=== PATIENT | male | born 1990 | race African-American/Black ===

== ENCOUNTER 2018-02-09 19:50 | Inpatient (IN) | payer MEDICAID, OTHER ==
[~2018-02-09] VITALS: Ht 180.3 cm; Wt 78.0 kg
[~2018-02-09 19:50] MED LIST: BUPROPION XL300 MG ORAL
[2018-02-09 19:52] VITALS: BP 106/57
[2018-02-09] MEDS ORDERED: Acetaminophen 500mg (ES) tab ORAL ONE (20:00)
--- NOTE | 2018-02-09 20:28 | Emergency Room Report ---
History of Present Illness General Chief Complaint: Diarrhea Source: Patient, EMS (Butch Lara) Present Illness HPI Patient's 28-year-old male who is brought in by EMS after increased fever and diarrhea. Patient reports having a fever for the past 2 days. Patient prior history of HIV. He denies any vomiting. He reports having abdominal pain in the epigastric area. This had somewhat improved. History is markedly limited by patient's poor historian. (Butch Lara) Allergies: Coded Allergies: No Known Allergies (Unverified , 02/09/18) Patient History Past Medical History: see triage record Reviewed Nursing Documentation: PMH: Agreed; PSxH: Agreed (Butch Lara) Nursing Documentation-PMH History Of Psychiatric Problem: Yes (Butch Lara) Review of Systems All Other Systems: limited - poor historian (Butch Lara) Physical Exam Vital Signs Date Time Temp Pulse Resp B/P (MAP) Pulse Ox O2 Delivery O2 Flow Rate FiO2 02/09/18 19:45 102.5 125 18 106/57 102.6 Sp02 EP Interpretation: reviewed, normal General Appearance: normal inspection, well appearing, no apparent distress, alert, GCS 15 Head: atraumatic ENT: normal ENT inspection, hearing grossly normal, normal voice Neck: normal inspection, full range of motion, supple, no bony tend Respiratory: normal inspection, lungs clear, normal breath sounds, no respiratory distress, no retraction, no wheezing Cardiovascular #1: no edema, tachycardia Gastrointestinal: soft, no guarding, no hernia, tenderness Genitourinary: no CVA tenderness Musculoskeletal: normal inspection, back normal, normal range of motion Neurologic: normal inspection, alert, oriented x3, responsive, advanced practice psychiatric nurse III-XII nml as tested, speech normal Psychiatric: normal inspection, judgement/insight normal, mood/affect normal Skin: normal inspection, normal color, no rash (Butch Lara) Procedures Critical Care Time Critical Care Time Patient had a critical medical condition which untreated could potentially result in life or limb threatening injury. Total critical care time excluding procedures approximately 45 minutes. (Butch Lara) Central Line Central Line : Consent: Emergent Central Line Lumen: triple Maximal Sterile Barrier Tech: yes cap, yes mask, yes sterile gown, yes sterile gloves, yes large sterile sheet, yes hand hygiene, yes chlorhexidine prep Central Line Postion: internal jugular (R) Anesthesia: Lidocaine cc's of anesthesia: 5 Central Line Post Position: sutured, good blood return, position confirmed w / CXR Attempts: One Patient Tolerated: Well Complications: None (Bhavik Lanza M.D.) Medical Decision Making Diagnostic Impression: Primary Impression: Enteritis Additional Impressions: Acute febrile illness HIV (human immunodeficiency virus infection) ER Course Patient presented for abdominal pain. Differential diagnoses included ischemic bowel, appendicitis, perforated viscus, abdominal aortic aneurysm, inferior myocardial infarction, viral gastroenteritis Because of complexity of patient's case laboratory testing and imaging studies were ordered. The patient started on IV fluids as well as IV antibiotics. Patient noted have prior history of HIV. The laboratory testing showed evidence of leukocytosis as well as rhabdomyolysis.The patient will likely require hospitalization due to rhabdomyolysis as well as the dehydration.Patient was noted to be initially normotensive. The patient blood pressure subsequent was noted to be lower.The lactic acid level was noted be elevated consistent with severe sepsis.CT the abdomen pelvis read by radiology showed fluid levels of colon there is mild wall thickening in keeping with colitis. Patient was endorsed to Dr. Lanza. Patient was discussed with Dr. Gabe Vyas due to capitated physician. Labs Test 02/09/18 20:10 White Blood Count 11.8 K/UL (4.8-10.8) Red Blood Count 6.13 M/UL (4.70-6.10) Hemoglobin 13.7 G/DL (14.2-18.0) Hematocrit 43.5 % (42.0-52.0) Mean Corpuscular Volume 71 FL (80-99) Mean Corpuscular Hemoglobin 22.3 PG (27.0-31.0) Mean Corpuscular Hemoglobin Concent 31.5 G/DL (32.0-36.0) Red Cell Distribution Width 14.0 % (11.6-14.8) Platelet Count 161 K/UL (150-450) Mean Platelet Volume 8.6 FL (6.5-10.1) Neutrophils (%) (Auto) 83.6 % (45.0-75.0) Lymphocytes (%) (Auto) 8.3 % (20.0-45.0) Monocytes (%) (Auto) 7.3 % (1.0-10.0) Eosinophils (%) (Auto) 0.0 % (0.0-3.0) Basophils (%) (Auto) 0.7 % (0.0-2.0) Sodium Level 140 MMOL/L (136-145) Potassium Level 3.1 MMOL/L (3.5-5.1) Chloride Level 103 MMOL/L (98-107) Carbon Dioxide Level 24 MMOL/L (21-32) Anion Gap 13 mmol/L (5-15) Blood Urea Nitrogen 26 mg/dL (7-18) Creatinine 1.6 MG/DL (0.55-1.30) Estimat Glomerular Filtration Rate > 60 mL/min (>60) Glucose Level 114 MG/DL (74-106) Calcium Level 8.2 MG/DL (8.5-10.1) Phosphorus Level 4.1 MG/DL (2.5-4.9) Magnesium Level 1.3 MG/DL (1.8-2.4) Total Bilirubin 0.6 MG/DL (0.2-1.0) Aspartate Amino Transf (AST/SGOT) 117 U/L (15-37) Alanine Aminotransferase (ALT/SGPT) 46 U/L (12-78) Alkaline Phosphatase 54 U/L (46-116) Total Creatine Kinase 5041 U/L (26-308) Creatine Kinase MB 1.2 NG/ML (0.0-3.6) Creatine Kinase MB Relative Index 0.0 Troponin I 0.000 ng/mL (0.000-0.056) Total Protein 8.0 G/DL (6.4-8.2) Albumin 3.5 G/DL (3.4-5.0) Globulin 4.5 g/dL Albumin/Globulin Ratio 0.8 (1.0-2.7) (Butch Lara) ER Course I received signout, 28-year-old male, enteritis, septic, still hypotensive despite fluid bolus, I placed central line without issue, we'll start Levothroid drip going to ICU Laboratory Tests Test 02/09/18 20:10 02/09/18 22:24 White Blood Count 11.8 K/UL (4.8-10.8) H Red Blood Count 6.13 M/UL (4.70-6.10) H Hemoglobin 13.7 G/DL (14.2-18.0) L Hematocrit 43.5 % (42.0-52.0) Mean Corpuscular Volume 71 FL (80-99) L Mean Corpuscular Hemoglobin 22.3 PG (27.0-31.0) L Mean Corpuscular Hemoglobin Concent 31.5 G/DL (32.0-36.0) L Red Cell Distribution Width 14.0 % (11.6-14.8) Platelet Count 161 K/UL (150-450) Mean Platelet Volume 8.6 FL (6.5-10.1) Neutrophils (%) (Auto) 83.6 % (45.0-75.0) H Lymphocytes (%) (Auto) 8.3 % (20.0-45.0) L Monocytes (%) (Auto) 7.3 % (1.0-10.0) Eosinophils (%) (Auto) 0.0 % (0.0-3.0) Basophils (%) (Auto) 0.7 % (0.0-2.0) Sodium Level 140 MMOL/L (136-145) Potassium Level 3.1 MMOL/L (3.5-5.1) L Chloride Level 103 MMOL/L (98-107) Carbon Dioxide Level 24 MMOL/L (21-32) Anion Gap 13 mmol/L (5-15) Blood Urea Nitrogen 26 mg/dL (7-18) H Creatinine 1.6 MG/DL (0.55-1.30) H Estimate Glomerular Filtration Rate > 60 mL/min (>60) Glucose Level 114 MG/DL (74-106) H Lactic Acid Level 2.90 mmol/L (0.66-2.22) H Calcium Level 8.2 MG/DL (8.5-10.1) L Phosphorus Level 4.1 MG/DL (2.5-4.9) Magnesium Level 1.3 MG/DL (1.8-2.4) L Total Bilirubin 0.6 MG/DL (0.2-1.0) Aspartate Amino Transferase (AST) 117 U/L (15-37) H Alanine Aminotransferase (ALT) 46 U/L (12-78) Alkaline Phosphatase 54 U/L (46-116) Total Creatine Kinase 5041 U/L (26-308) H Creatine Kinase MB 1.2 NG/ML (0.0-3.6) Creatine Kinase MB Relative Index 0.0 Troponin I 0.000 ng/mL (0.000-0.056) Total Protein 8.0 G/DL (6.4-8.2) Albumin 3.5 G/DL (3.4-5.0) Globulin 4.5 g/dL Albumin/Globulin Ratio 0.8 (1.0-2.7) L Urine Color Era Urine Appearance Clear Urine pH 5.0 (4.5-8.0) Urine Specific [place] 1.020 (1.005-1.035) Urine Protein 2+ (NEGATIVE) H Urine Glucose (UA) Negative (NEGATIVE) Urine Ketones Negative (NEGATIVE) Urine Occult Blood 1+ (NEGATIVE) H Urine Nitrite Negative (NEGATIVE) Urine Bilirubin Negative (NEGATIVE) Urine Ictotest Negative Urine Urobilinogen 1 MG/DL (0.0-1.0) H Urine Leukocyte Esterase 1+ (NEGATIVE) H Urine RBC 0-2 /HPF (0 - 0) H Urine WBC 5-10 /HPF (0 - 0) H Urine Squamous Epithelial Cells Occasional /LPF Urine Amorphous Sediment Moderate /LPF (NONE) H Urine Bacteria Few /HPF (NONE) Microbiology Date/Time Source Procedure Growth Status 02/09/18 20:15 Nasal Nares Influenza Types A,B Antigen (LILLI) - Final Complete (Bhavik Lanza M.D.) EKG Diagnostic Results Rate: tachycardiac - 127 Rhythm: NSR ST Segments: no acute changes ASA given to the pt in ED: No (Butch Lara) Rhythm Strip Diag. Results EP Interpretation: yes Rhythm: NSR, no PVC's, no ectopy (Butch Lara) Last Vital Signs Date Time Temp Pulse Resp B/P (MAP) Pulse Ox O2 Delivery O2 Flow Rate FiO2 02/09/18 19:45 102.5 125 18 106/57 102.6 Status: unchanged (Butch Lara) Disposition: XFER SHT-TRM HOSP Condition: Serious Butch Lara Feb 09, 2018 20:28 Bhavik Lanza M.D. Feb 09, 2018 23:44
[2018-02-09 20:45] LABS: BASOPHILS % (AUTO) 0.7 % (0.0-2.0); HEMATOCRIT 43.5 % (42.0-52.0); HEMOGLOBIN 13.7 G/DL (14.2-18.0); LYMPHOCYTES % (AUTO) 8.3 % (20.0-45.0); MEAN CORPUSCULAR VOLUME 71 FL (80-99); MONOCYTES % (AUTO) 7.3 % (1.0-10.0); NEUTROPHILS % (AUTO) 83.6 % (45.0-75.0); PLATELET COUNT 161 K/UL (150-450); RED BLOOD COUNT 6.13 M/UL (4.70-6.10); WHITE BLOOD COUNT 11.8 K/UL (4.8-10.8)
[2018-02-09 20:47] LABS: ANION GAP 13 mmol/L (5-15); BLOOD UREA NITROGEN 26 mg/dL (7-18); CALCIUM 8.2 MG/DL (8.5-10.1); CARBON DIOXIDE 24 MMOL/L (21-32); CHLORIDE 103 MMOL/L (98-107); CREATININE 1.6 MG/DL (0.55-1.30); POTASSIUM 3.1 MMOL/L (3.5-5.1); SODIUM 140 MMOL/L (136-145)
[2018-02-09 21:01] LABS: ALANINE AMINOTRANSFERASE 46 U/L (12-78); ALBUMIN 3.5 G/DL (3.4-5.0); ALBUMIN/GLOBULIN RATIO 0.8 (1.0-2.7); ALKALINE PHOSPHATASE 54 U/L (46-116); ASPARTATE AMINO TRANSFERASE 117 U/L (15-37); BILIRUBIN,TOTAL 0.6 MG/DL (0.2-1.0); CKMB 1.2 NG/ML (0.0-3.6); CREATINE KINASE 5041 U/L (26-308); PHOSPHORUS 4.1 MG/DL (2.5-4.9)
[2018-02-09 21:18] VITALS: BP 87/46
[2018-02-09] MEDS ORDERED: Ascorbic Acid 500mg tab ORAL ONE (21:30)
[2018-02-09] MEDS ORDERED: Hydrocortisone 100mg Inj IV ONE (21:30)
[2018-02-09 22:43] LABS: APPEARANCE,URINE CLEAR; COLOR,URINE AMBER
[2018-02-09 22:44] LABS: BILIRUBIN, URINE NEGATIVE (NEGATIVE); GLUCOSE, URINE (UA) NEGATIVE (NEGATIVE); KETONES,URINE NEGATIVE (NEGATIVE); LEUKOCYTE ESTERASE ,URINE 1+ (NEGATIVE); NITRITE,URINE NEGATIVE (NEGATIVE); PROTEIN,URINE 2+ (NEGATIVE); UROBILINOGEN,URINE 1 MG/DL (0.0-1.0)
[2018-02-09 22:46] VITALS: BP 83/49
[2018-02-09] MEDS ORDERED: Lidocaine 1% MPF 10mg/ml 5ml ONE (23:04)
[2018-02-09 23:39] VITALS: BP 90/45
[2018-02-10] VITALS (17 sets, daily range): BP systolic 96–111; BP diastolic 45–74
[2018-02-10] MEDS ORDERED: Lidocaine 1% MPF 10mg/ml 5ml INJ ONE
[2018-02-10] MEDS ORDERED: D5NS 1,000 ML IV SCH (01:45)
[2018-02-10] MEDS ORDERED: Vancomycin 1gm/D5W 275ml IVPB SCH ×4 (02:30→11:00)
[2018-02-10 04:44] LABS: BASOPHILS % (AUTO) 1.2 % (0.0-2.0); HEMATOCRIT 39.9 % (42.0-52.0); HEMOGLOBIN 13.1 G/DL (14.2-18.0); LYMPHOCYTES % (AUTO) 18.5 % (20.0-45.0); MEAN CORPUSCULAR VOLUME 71 FL (80-99); MONOCYTES % (AUTO) 5.5 % (1.0-10.0); NEUTROPHILS % (AUTO) 74.7 % (45.0-75.0); PLATELET COUNT 164 K/UL (150-450); RED CELL DISTRIBUTION WIDTH 13.7 % (11.6-14.8); WHITE BLOOD COUNT 7.3 K/UL (4.8-10.8)
[2018-02-10 05:11] LABS: ALANINE AMINOTRANSFERASE 39 U/L (12-78); ALBUMIN 2.5 G/DL (3.4-5.0); ALBUMIN/GLOBULIN RATIO 0.7 (1.0-2.7); ALKALINE PHOSPHATASE 40 U/L (46-116); ANION GAP 10 mmol/L (5-15); ASPARTATE AMINO TRANSFERASE 79 U/L (15-37); BILIRUBIN,TOTAL 0.6 MG/DL (0.2-1.0); BLOOD UREA NITROGEN 23 mg/dL (7-18); CALCIUM 7.2 MG/DL (8.5-10.1); CARBON DIOXIDE 22 MMOL/L (21-32); CHLORIDE 107 MMOL/L (98-107); CREATININE 1.1 MG/DL (0.55-1.30); POTASSIUM 3.1 MMOL/L (3.5-5.1); SODIUM 139 MMOL/L (136-145)
[2018-02-10] MEDS ORDERED: metroNIDAZOLE 500mg tab ORAL SCH ×2 (06:00→14:00)
[2018-02-10] MEDS ORDERED: Dyna-Hex 2% Top Sol 2oz TOPIC SCH (09:00)
--- NOTE | 2018-02-10 10:42 | Diagnostic Imaging Report ---
Indication: Shortness breath, cough Technique: One view of the chest Comparison: none Findings: Lungs and pleural spaces are clear. Heart size is normal Impression: No acute process
--- NOTE | 2018-02-10 10:52 | Diagnostic Imaging Report ---
Indication: Abdominal pain and diarrhea x3 months on and off Technique: Spiral acquisitions obtained through the abdomen and pelvis. No oral contrast utilized, per emergency room physician request No IV contrast utilized, for emergency room physician request.. Multiplanar reconstructions were generated. Total dose length product 886.07 mGycm. CTDIvol(s) 14.56 mGy. Dose reduction achieved using automated exposure control Comparison: None Findings: Structure within the right inguinal canal may represent an incompletely descended right testicle. The colon is diffusely filled with liquid. No evidence of diverticulosis or diverticulitis. The appendix is not definitely identified, but no findings to suggest acute appendicitis are evident. There is occasional slight wall thickening. Small bowel loops are also fluid-filled, to a lesser extent than the colon. There are nondilated. No free or loculated intraperitoneal air or fluid is evident. No definite small bowel wall thickening. Lack of IV contrast limits assessment of the solid organs. The liver, gallbladder, bile ducts, pancreas, spleen, adrenals, kidneys are all unremarkable. No retroperitoneal or mesenteric mass or adenopathy. No pelvic mass or adenopathy. The included lung bases demonstrate posterior dependent atelectatic changes. The bones are unremarkable. Impression: Diffusely fluid-filled colon with equivocal slight wall thickening, suspect colitis. Fluid is also consistent with stated clinical history of diarrhea. Fluid-filled small bowel loops may also indicate a component of enteritis No other acute abnormality Suspect incompletely descended right testicle This agrees with the preliminary interpretation provided overnight by [facility] teleradiology service. The CT scanner at [facility] is accredited by the [employer] and the scans are performed using protocols designed to limit radiation exposure to as low as reasonably achievable to attain images of sufficient resolution adequate for diagnostic evaluation.
--- NOTE | 2018-02-10 10:58 | Diagnostic Imaging Report ---
Indication: Status post line placement Technique: One view of the chest Comparison: 3 hours earlier Findings: The lungs and pleural spaces are clear. Interim placement of a a jugular central venous catheter, tip of which projects at the level of the mid superior vena cava. No pneumothorax. Impression: Satisfactory central line placement. No radiographic complication
[2018-02-10] MEDS ORDERED: Vancomycin 1 GM in D5W 275 ML IVPB SCH (11:00)
[2018-02-10] MEDS: D5NS 1,000 ML IV SCH (11:28)
--- NOTE | 2018-02-10 11:52 | Infectious Diseases Prog Note ---
Assessment/Plan Problems: (1) C. difficile colitis Assessment & Plan: complicated with sepsis, will start oral vancomycin and flagyl iv, keep in contact isolation, avoid PPI and Imodium (2) Sepsis Assessment & Plan: due to the above, will stop IV vancomycin , and levaquin, start oral vancomycin and iv flagyl , continue hydration (3) HIV (human immunodeficiency virus infection) Assessment & Plan: will check his CD4 counts and Viral load, I asked him to bring his meds or tell me the names of his medications to resume them (4) dehydration,hypotension Assessment & Plan: due to the above, continue IVF for hydration (5) Open wound of penis Assessment & Plan: will screen him for gonorrhea, chlamydia and syphilis with RPR . will send wound culture Subjective Allergies: Coded Allergies: No Known Allergies (Unverified , 02/09/18) Objective Vital Signs Last 24 Hour Vital Signs Date Time Temp Pulse Resp B/P (MAP) Pulse Ox O2 Delivery O2 Flow Rate FiO2 02/10/18 10:00 100 15 110/66 100 Room Air 02/10/18 09:00 104 15 111/69 100 Room Air 02/10/18 08:00 108 02/10/18 08:00 98.8 99 16 106/64 100 Room Air 98.8 02/10/18 07:00 105 16 96/61 100 Room Air 02/10/18 06:00 102 17 105/67 100 Room Air 02/10/18 05:00 101 17 111/60 100 Room Air 02/10/18 04:00 98.5 99 18 102/72 100 Room Air 98.5 02/10/18 03:30 102 17 106/56 100 Room Air 02/10/18 03:02 107 02/10/18 03:00 106 17 96/51 100 Room Air 02/10/18 02:30 107 19 109/45 98 Room Air 02/10/18 02:00 109/45 02/10/18 02:00 111 18 96/55 96 Room Air 02/10/18 01:30 98.3 110 22 101/55 97 Room Air 98.3 02/10/18 01:01 112 02/10/18 01:00 98.3 112 25 109/66 97 Room Air 98.3 02/10/18 01:00 [id number] 112 25 109/66 97 Room Air 208.9 02/10/18 00:31 98.7 99 27 100/72 98.7 02/10/18 00:17 83/51 02/10/18 00:17 83/51 02/09/18 23:39 99.8 116 29 90/45 99.8 02/09/18 22:46 102.0 118 30 83/49 102.0 02/09/18 21:39 102.7 02/09/18 21:33 102.7 02/09/18 21:18 102.7 126 24 87/46 102.7 02/09/18 20:23 102.5 02/09/18 19:52 102.6 126 24 106/57 102.6 02/09/18 19:45 102.5 125 18 106/57 102.6 Height (Feet): 5 Height (Inches): 11.00 Weight (Pounds): 170 Microbiology Date/Time Source Procedure Growth Status 02/09/18 20:15 Nasal Nares Influenza Types A,B Antigen (LILLI) - Final Complete 02/10/18 04:14 Stool Clostridium difficile Toxin Assay - Final Complete Laboratory Tests Test 02/09/18 20:10 02/09/18 22:24 02/09/18 23:24 02/10/18 04:10 White Blood Count 11.8 K/UL (4.8-10.8) H 7.3 K/UL (4.8-10.8) Red Blood Count 6.13 M/UL (4.70-6.10) H 5.60 M/UL (4.70-6.10) Hemoglobin 13.7 G/DL (14.2-18.0) L 13.1 G/DL (14.2-18.0) L Hematocrit 43.5 % (42.0-52.0) 39.9 % (42.0-52.0) L Mean Corpuscular Volume 71 FL (80-99) L 71 FL (80-99) L Mean Corpuscular Hemoglobin 22.3 PG (27.0-31.0) L 23.3 PG (27.0-31.0) L Mean Corpuscular Hemoglobin Concent 31.5 G/DL (32.0-36.0) L 32.7 G/DL (32.0-36.0) Red Cell Distribution Width 14.0 % (11.6-14.8) 13.7 % (11.6-14.8) Platelet Count 161 K/UL (150-450) 164 K/UL (150-450) Mean Platelet Volume 8.6 FL (6.5-10.1) 8.9 FL (6.5-10.1) Neutrophils (%) (Auto) 83.6 % (45.0-75.0) H 74.7 % (45.0-75.0) Lymphocytes (%) (Auto) 8.3 % (20.0-45.0) L 18.5 % (20.0-45.0) L Monocytes (%) (Auto) 7.3 % (1.0-10.0) 5.5 % (1.0-10.0) Eosinophils (%) (Auto) 0.0 % (0.0-3.0) 0.0 % (0.0-3.0) Basophils (%) (Auto) 0.7 % (0.0-2.0) 1.2 % (0.0-2.0) Sodium Level 140 MMOL/L (136-145) 139 MMOL/L (136-145) Potassium Level 3.1 MMOL/L (3.5-5.1) L 3.1 MMOL/L (3.5-5.1) L Chloride Level 103 MMOL/L (98-107) 107 MMOL/L (98-107) Carbon Dioxide Level 24 MMOL/L (21-32) 22 MMOL/L (21-32) Anion Gap 13 mmol/L (5-15) 10 mmol/L (5-15) Blood Urea Nitrogen 26 mg/dL (7-18) H 23 mg/dL (7-18) H Creatinine 1.6 MG/DL (0.55-1.30) H 1.1 MG/DL (0.55-1.30) Estimat Glomerular Filtration Rate > 60 mL/min (>60) > 60 mL/min (>60) Glucose Level 114 MG/DL (74-106) H 128 MG/DL (74-106) H Lactic Acid Level 2.90 mmol/L (0.66-2.22) H 1.70 mmol/L (0.66-2.22) Calcium Level 8.2 MG/DL (8.5-10.1) L 7.2 MG/DL (8.5-10.1) L Phosphorus Level 4.1 MG/DL (2.5-4.9) Magnesium Level 1.3 MG/DL (1.8-2.4) L Total Bilirubin 0.6 MG/DL (0.2-1.0) 0.6 MG/DL (0.2-1.0) Aspartate Amino Transf (AST/SGOT) 117 U/L (15-37) H 79 U/L (15-37) H Alanine Aminotransferase (ALT/SGPT) 46 U/L (12-78) 39 U/L (12-78) Alkaline Phosphatase 54 U/L (46-116) 40 U/L (46-116) L Total Creatine Kinase 5041 U/L (26-308) H Creatine Kinase MB 1.2 NG/ML (0.0-3.6) Creatine Kinase MB Relative Index 0.0 Troponin I 0.000 ng/mL (0.000-0.056) Total Protein 8.0 G/DL (6.4-8.2) 6.3 G/DL (6.4-8.2) L Albumin 3.5 G/DL (3.4-5.0) 2.5 G/DL (3.4-5.0) L Globulin 4.5 g/dL 3.8 g/dL Albumin/Globulin Ratio 0.8 (1.0-2.7) L 0.7 (1.0-2.7) L Urine Color Era Urine Appearance Clear Urine pH 5.0 (4.5-8.0) Urine Specific [place] 1.020 (1.005-1.035) Urine Protein 2+ (NEGATIVE) H Urine Glucose (UA) Negative (NEGATIVE) Urine Ketones Negative (NEGATIVE) Urine Occult Blood 1+ (NEGATIVE) H Urine Nitrite Negative (NEGATIVE) Urine Bilirubin Negative (NEGATIVE) Urine Ictotest Negative Urine Urobilinogen 1 MG/DL (0.0-1.0) H Urine Leukocyte Esterase 1+ (NEGATIVE) H Urine RBC 0-2 /HPF (0 - 0) H Urine WBC 5-10 /HPF (0 - 0) H Urine Squamous Epithelial Cells Occasional /LPF Urine Amorphous Sediment Moderate /LPF (NONE) H Urine Bacteria Few /HPF (NONE) Current Medications Medications (Trade) Dose Ordered Sig/Carmelo Route PRN Reason Start Time Stop Time Status Last Admin Dose Admin Chlorhexidine Gluconate (Trinh-Hex 2%) 1 applic DAILY TOPIC 02/11/18 09:00 03/12/18 08:59 Dextrose/Sodium Chloride 1,000 ml @ 75 mls/hr [id number] IV 02/10/18 10:45 03/12/18 01:44 02/10/18 11:28 Metronidazole 100 ml @ 100 mls/hr Q8HR IVPB 02/10/18 14:00 02/17/18 13:59 UNV Vancomycin HCl (Vancomycin) 125 mg FOUR TIMES A DAY ORAL 02/10/18 13:00 02/17/18 12:59 UNV Kaylynn Bernstein M.D. Feb 10, 2018 11:52
[2018-02-10] MEDS: Vancomycin oral 125mg/2.5ml ORAL SCH ×3 (13:40→22:01)
--- NOTE | 2018-02-10 20:00 | History and Physical Report ---
DATE OF ADMISSION: 02/09/2018 HISTORY OF PRESENT ILLNESS: This is a 28-year-old apparently homeless male who is HIV positive. He states he has been having diarrhea for the last four days. He came to the hospital with nausea and profuse diarrhea. He was also found to be hypotensive. The patient also reports fever for the last few days. The patient reports that he has a history of bipolar/manic disorder. He also has HIV positivity. He states he has been on medication in the past, although he cannot recall the names and dosages. He states he has not been taking it four days. PAST MEDICAL HISTORY: HIV positivity, manic depressive psychosis, possible homelessness. PREVIOUS SURGERIES: None reported. ALLERGIES: None reported. HOME MEDICATIONS: The patient unable to recall, but however he does take Wellbutrin as well as . REVIEW OF SYSTEMS: Denies any headaches, hematemesis, melena. He admits to having diarrhea, nausea. No weight loss. PHYSICAL EXAMINATION: GENERAL: Reveals a frail male. VITAL SIGNS: Blood pressure at this time is 102/60, heart rate is 104, respiratory rate 18, afebrile. T-max 102.5. HEENT: Unremarkable. CHEST: Clear breath sounds bilaterally. ABDOMEN: Soft. NEUROLOGIC: Nonfocal. LABORATORY DATA: Lab testing shows white count 11,000, hemoglobin 13. Chemistries show potassium 3.1, glucose 128, albumin 2.5. IMAGING STUDIES: None. IMPRESSION: 1. Acute colitis. 2. Hyperglycemia. 3. Elevated lactic acid. 4. Sepsis. 5. Diarrhea. 6. HIV positivity. 7. Bipolar/manic depressive psychosis. DISCUSSION: Admitted to the hospital. The patient has been seen in the ER last now this morning in the ICU. He has not required pressors. We will transfer him to [facility]. I will start him on broad-spectrum antibiotics. We will put him back on Wellbutrin. We will consult ID regarding HIV medications. 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 We will also consult GI. Gabe Vyas M.D. DR: Dean JOB#: [id number] CC:
--- NOTE | 2018-02-10 21:30 | Consultation ---
DATE OF CONSULTATION: 02/10/2018 INFECTIOUS DISEASES CONSULTATION CONSULTING PHYSICIAN: Kaylynn Bernstein M.D. REQUESTING PHYSICIAN: Gabe Vyas M.D. REASON FOR CONSULTATION: Colitis severe due to C. difficile infection in HIV patient, recommendation for antibiotics treatment, and further HIV care. HISTORY OF PRESENT ILLNESS: The patient is a 28-year-old male who is HIV positive, unclear whether he is taking any HIV medication at this point. He was brought into the emergency room at [facility] for fever, weakness, and significant diarrhea. Symptoms started about four days ago. He was nauseated, but did not vomit. He had multiple watery bowel movements over the last couple of days. He complained of mild abdominal discomfort in the epigastric area. The patient was found to be hypotensive in the emergency room and febrile with temperature of 102.5 degrees. Stool screening was sent in the emergency room for C. difficile and came back positive. The patient was started on IV vancomycin and Levaquin in the emergency room. An Infectious Disease consultation was requested for further evaluation and management of his C. difficile colitis, which is complicated with sepsis and his HIV condition. The patient denied any recent sexual activity or anal intercourse since 4 years ago. He is currently homeless. Denied using any drugs, tobacco, or alcohol. He was taking HIV medication as per his report and stopped 4 days ago. He does not know the names and unclear whether he has them or not. REVIEW OF SYSTEMS: A 14 points of system reviewed were all negative apart from the one I mentioned above in my H and P. PAST MEDICAL HISTORY: Significant for HIV. MEDICATIONS: The patient received vancomycin and Levaquin in the emergency room. For the rest of his medications, please refer to MAR. SOCIAL HISTORY: The patient is homeless. Denied using any drugs, tobacco, or alcohol. Not sexually active at this point. FAMILY HISTORY: Noncontributory. PHYSICAL EXAMINATION: VITAL SIGN: Temperature 98.8 down from 102.5, pulse 99, respirations 16, blood pressure 106/64, saturation 100% on room air. GENERAL: A young male, lying in bed, awake, alert, comfortable, not in acute distress. HEENT: Normocephalic and atraumatic. Pupils are reactive to light. Moist oral mucosa. No exudate or thrush. NECK: Supple. No lymphadenopathy. CARDIOVASCULAR: Regular rate and rhythm. No murmur. No gallop. LUNGS: Clear bilaterally. No wheezing or rhonchi. ABDOMEN: Soft, nontender, and nondistended. Hyperactive bowel sounds. No hepatosplenomegaly. No ascites. EXTREMITIES: No edema or cyanosis. SKIN: He had penile wound with dry secretion, nontender, no discharge . No evidence of lymphadenopathy in the groins. No penile discharge from the urethra. LABORATORY AND DIAGNOSTIC DATA: White count 11.8, hemoglobin 13.7, platelet count of 161,000. BUN of 26, creatinine of 1.6. AST of 117, ALT of 46. Urinalysis showed +1 leukocyte esterase, wbc 5-10, moderate amount of amorphous sediments, and few bacteria. Microbiology, C. difficile colitis toxin A and B was positive. Influenza screening was negative. Imaging, chest x-ray showed no acute cardiopulmonary infiltrates or pathology. CT scan of abdomen and pelvis showed diffusely fluid-filled colon with equivocal slight wall thickening, suspect colitis. Fluid also consistent with stated clinical history of diarrhea. Fluid-filled small bowel loops may also indicate component of enteritis. No other acute abnormalities. Suspect incompletely descended right testicle. ASSESSMENT AND RECOMMENDATION: 1. C. difficile colitis complicated with sepsis and hypotension. We will start oral vancomycin and Flagyl IV direct treatment. Keep in contact isolation for C. difficile. Avoid PPI and . 2. Sepsis due to the above with hypotension. We will stop IV vancomycin and Levaquin. We will start oral vancomycin and IV Flagyl. Continue hydration. Monitor blood pressure closely. We will send blood culture. 3. HIV. We will check his CD4 count and viral load. I asked the patient to bring his medication or tell me the names of his medicine, so we can resume them, unclear whether he has them or not, and he does not recall the names at this point. 4. Dehydration and hypotension due to the above. Continue IV fluid for hydration. Monitor electrolytes. 5. Penile wound. We will send wound culture and screen the patient for GC Chlamydia and syphilis with RPR. We will treat if the screening returns positive for any STD. Thank you for the consult. ID will continue to follow. Kaylynn Bernstein M.D. DR: Del JOB#: [id number] CC: [id number]
[2018-02-10] MEDS ORDERED: Tubing IV Secondary IV ONE (22:28)
[2018-02-10] MEDS ORDERED: D5W 275ml ONE (22:28)
[2018-02-10] MEDS ORDERED: D5NS 1000ml IV ONE (22:28)
[2018-02-11] VITALS: BP 100/51
[2018-02-11] MEDS: D5NS 1,000 ML IV SCH (00:25)
[2018-02-11 03:27] LABS: BASOPHILS % (AUTO) 1.5 % (0.0-2.0); EOSINOPHILS % (AUTO) 1.1 % (0.0-3.0); HEMATOCRIT 37.9 % (42.0-52.0); HEMOGLOBIN 12.8 G/DL (14.2-18.0); LYMPHOCYTES % (AUTO) 36.5 % (20.0-45.0); MEAN CORPUSCULAR VOLUME 70 FL (80-99); MONOCYTES % (AUTO) 7.1 % (1.0-10.0); NEUTROPHILS % (AUTO) 53.8 % (45.0-75.0); PLATELET COUNT 150 K/UL (150-450); RED BLOOD COUNT 5.38 M/UL (4.70-6.10); RED CELL DISTRIBUTION WIDTH 13.3 % (11.6-14.8); WHITE BLOOD COUNT 8.4 K/UL (4.8-10.8)
[2018-02-11 03:33] LABS: ANION GAP 5 mmol/L (5-15); BLOOD UREA NITROGEN 13 mg/dL (7-18); CALCIUM 7.7 MG/DL (8.5-10.1); CARBON DIOXIDE 26 MMOL/L (21-32); CHLORIDE 106 MMOL/L (98-107); CREATININE 1.1 MG/DL (0.55-1.30); POTASSIUM 2.8 MMOL/L (3.5-5.1); SODIUM 137 MMOL/L (136-145)
[2018-02-11 04:00] VITALS: BP 105/62
[2018-02-11 08:00] VITALS: BP 102/67
[2018-02-11] MEDS: Vancomycin oral 125mg/2.5ml ORAL SCH ×2 (08:09→13:47)
[2018-02-11] MEDS ORDERED: Dyna-Hex 2% Top Sol 2oz TOPIC SCH (09:00)
--- NOTE | 2018-02-11 09:35 | Pulmonology Progress Note ---
Assessment/Plan Assessment/Plan IMPRESSION: 1. Acute colitis. 2. Hyperglycemia. 3. Elevated lactic acid. 4. Sepsis. 5. Diarrhea. 6. HIV positivity. 7. Bipolar/manic depressive psychosis. DISCUSSION: Found to have acute c diff colitis Continue PO Vanco and PO flagyl Subjective Interval Events: Diarrhea less so. Feels better Constitutional: Reports: no symptoms HEENT: Repors: no symptoms Respiratory: Reports: no symptoms Cardiovascular: Reports: no symptoms Gastrointestinal/Abdominal: Reports: no symptoms Allergies: Coded Allergies: No Known Allergies (Unverified , 02/09/18) Objective Last 24 Hour Vital Signs Date Time Temp Pulse Resp B/P (MAP) Pulse Ox O2 Delivery O2 Flow Rate FiO2 02/11/18 08:00 98.1 84 20 102/67 94 Room Air 98.1 02/11/18 04:00 89 02/11/18 04:00 98.2 81 20 105/62 96 Room Air 98.2 02/11/18 00:00 97.9 97 20 100/51 97 Room Air 97.9 02/11/18 00:00 90 02/10/18 20:01 98.4 02/10/18 20:00 98.4 95 20 109/74 97 Room Air 98.4 02/10/18 20:00 98 02/10/18 19:00 100.9 02/10/18 16:00 100.2 93 18 100/65 100 Room Air 100.2 02/10/18 16:00 104 02/10/18 12:00 106 02/10/18 12:00 99.5 105 16 110/68 100 Room Air 99.5 02/10/18 10:00 100 15 110/66 100 Room Air Intake and Output 02/10/18 02/11/18 19:00 07:00 Intake Total 175 ml 1622 ml Output Total 500 ml Balance -325 ml 1622 ml Intake Oral 100 ml 712 ml IV Total 75 ml 910 ml Output Urine Total 500 ml # Voids 2 # Bowel Movements 2 1 General Appearance: no acute distress HEENT: normocephalic Respiratory/Chest: chest wall non-tender, lungs clear Cardiovascular: normal peripheral pulses, normal rate Microbiology Date/Time Source Procedure Growth Status 02/09/18 20:15 Blood Blood Culture - Preliminary NO GROWTH AFTER 24 HOURS Resulted 02/09/18 20:10 Blood Blood Culture - Preliminary NO GROWTH AFTER 24 HOURS Resulted 02/09/18 20:15 Nasal Nares Influenza Types A,B Antigen (LILLI) - Final Complete 02/10/18 04:14 Stool Clostridium difficile Toxin Assay - Final Complete Laboratory Tests 02/10/18 14:13: White Blood Count [Pending], Lymphocytes [Pending], Percent CD3 Cells [Pending] , Absolute CD3 Count [Pending], Percent CD4 Cells [Pending], Absolute CD4 Count [Pending], T-Lymphocyte CD4/CD8 Ratio [Pending], Percent CD8 Cells [Pending], Absolute CD8 Count [Pending], Rapid Plasma Reagin [Pending], HIV-1 RNA (PCR) log10 Value [Pending], HIV-1 RNA Ultraquantitative (PCR) [Pending] 02/11/18 02:30: White Blood Count 8.4, Red Blood Count 5.38, Hemoglobin 12.8L, Hematocrit 37.9L , Mean Corpuscular Volume 70L, Mean Corpuscular Hemoglobin 23.8L, Mean Corpuscular Hemoglobin Concent 33.8, Red Cell Distribution Width 13.3, Platelet Count 150, Mean Platelet Volume 9.0, Neutrophils (%) (Auto) 53.8, Lymphocytes (% ) (Auto) 36.5, Monocytes (%) (Auto) 7.1, Eosinophils (%) (Auto) 1.1, Basophils ( %) (Auto) 1.5, Sodium Level 137, Potassium Level 2.8L, Chloride Level 106, Carbon Dioxide Level 26, Anion Gap 5, Blood Urea Nitrogen 13, Creatinine 1.1, Estimat Glomerular Filtration Rate > 60, Glucose Level 104, Calcium Level 7.7L, Vancomycin Level Trough 2.5L Current Medications Medications (Trade) Dose Ordered Sig/Carmelo Route PRN Reason Start Time Stop Time Status Last Admin Dose Admin Acetaminophen (Tylenol) 650 mg Q6H PRN ORAL Mild Pain/Temp > 100.5 02/10/18 18:45 03/12/18 18:44 02/10/18 19:00 Chlorhexidine Gluconate (Trinh-Hex 2%) 1 applic DAILY TOPIC 02/11/18 09:00 03/12/18 08:59 02/11/18 08:10 Dextrose/Sodium Chloride 1,000 ml @ 75 mls/hr [id number] IV 02/10/18 10:45 03/12/18 01:44 02/11/18 00:25 Metronidazole 100 ml @ 100 mls/hr Q8HR IVPB 02/10/18 14:00 02/17/18 13:59 02/11/18 06:13 Potassium Chloride (K-Dur) 80 meq ONCE ONCE ORAL 02/11/18 09:30 02/11/18 09:31 UNV Vancomycin HCl (Vancomycin) 125 mg FOUR TIMES A DAY ORAL 02/10/18 13:00 02/17/18 12:59 02/11/18 08:09 Gabe Vyas MD Feb 11, 2018 09:35
--- NOTE | 2018-02-11 09:57 | GI Initial Consult Note ---
History of Present Illness General Date patient seen: Feb 11, 2018 Time patient seen: 09:51 Reason for Hospitalization: Diarrhea Referring physician: KADEEM SALINAS Reason for Consultation: DIARRHEA Present Illness HPI Patient's 28-year-old male who is brought in by EMS after increased fever and diarrhea. Patient reports having a fever for the past 2 days. Patient prior history of HIV. He denies any vomiting. He reports having abdominal pain in the epigastric area. This had somewhat improved. History is markedly limited by patient's poor historian. GI consulted for diarrhea. Pt seen, awake A&Ox4 NAD with no active s/sx of N/ V. Reports of diarrhea, now improved. Denies any abdominal pain at this time, wishes to be discharged. Pt presents today with mild anemia, elevated AST and alkaline phosphatase. Cdiff toxin came back positive. No history of endoscopy / colonoscopy. Home Meds Reported Medications Bupropion Hcl* (WELLBUTRIN*) 300 Mg Tab.er.24h, 300 MG ORAL DAILY, #30 TAB 0 Refills 02/09/18 Med list reviewed/reconciled: Yes Allergies: Coded Allergies: No Known Allergies (Unverified , 02/09/18) Patient History Limited by: medical condition History Provided By: Patient, Medical Record [facility] Narrative Past Medical History: HIV Social History: Denies: smoking, alcohol use, drug use, other Review of Systems All Other Systems: negative except mentioned in HPI Physical Exam Vital Signs Date Time Temp Pulse Resp B/P (MAP) Pulse Ox O2 Delivery O2 Flow Rate FiO2 02/09/18 19:45 102.5 125 18 106/57 102.6 02/10/18 01:00 97 Room Air Sp02 EP Interpretation: reviewed, normal Labs Laboratory Tests Test 02/10/18 14:13 02/11/18 02:30 White Blood Count Pending 8.4 K/UL (4.8-10.8) Lymphocytes Pending Percent CD3 Cells Pending Absolute CD3 Count Pending Percent CD4 Cells Pending Absolute CD4 Count Pending T-Lymphocyte CD4/CD8 Ratio Pending Percent CD8 Cells Pending Absolute CD8 Count Pending Rapid Plasma Reagin Pending HIV-1 RNA (PCR) log10 Value Pending HIV-1 RNA Ultraquantitative (PCR) Pending Red Blood Count 5.38 M/UL (4.70-6.10) Hemoglobin 12.8 G/DL (14.2-18.0) L Hematocrit 37.9 % (42.0-52.0) L Mean Corpuscular Volume 70 FL (80-99) L Mean Corpuscular Hemoglobin 23.8 PG (27.0-31.0) L Mean Corpuscular Hemoglobin Concent 33.8 G/DL (32.0-36.0) Red Cell Distribution Width 13.3 % (11.6-14.8) Platelet Count 150 K/UL (150-450) Mean Platelet Volume 9.0 FL (6.5-10.1) Neutrophils (%) (Auto) 53.8 % (45.0-75.0) Lymphocytes (%) (Auto) 36.5 % (20.0-45.0) Monocytes (%) (Auto) 7.1 % (1.0-10.0) Eosinophils (%) (Auto) 1.1 % (0.0-3.0) Basophils (%) (Auto) 1.5 % (0.0-2.0) Sodium Level 137 MMOL/L (136-145) Potassium Level 2.8 MMOL/L (3.5-5.1) L Chloride Level 106 MMOL/L (98-107) Carbon Dioxide Level 26 MMOL/L (21-32) Anion Gap 5 mmol/L (5-15) Blood Urea Nitrogen 13 mg/dL (7-18) Creatinine 1.1 MG/DL (0.55-1.30) Estimat Glomerular Filtration Rate > 60 mL/min (>60) Glucose Level 104 MG/DL (74-106) Calcium Level 7.7 MG/DL (8.5-10.1) L Vancomycin Level Trough 2.5 ug/mL (5.0-12.0) L General Appearance: well appearing, no apparent distress, alert Head: normocephalic EENT: PERRL/EOMI, normal ENT inspection Neck: supple Respiratory: normal breath sounds, no respiratory distress Cardiovascular: normal rate Gastrointestinal: normal inspection, non tender, soft, normal bowel sounds, non -distended Rectal: deferred Genitourinary: deferred Musculoskeletal: normal inspection, back normal Neurologic: normal inspection, alert, oriented x3, responsive Psychiatric: normal inspection, judgement/insight normal, memory normal Skin: normal inspection, normal color, no rash, warm/dry, palpation normal, well hydrated Lymphatic: normal inspection, no adenopathy Current Medications Current Medications Medications (Trade) Dose Ordered Sig/Carmelo Route PRN Reason Start Time Stop Time Status Last Admin Dose Admin Acetaminophen (Tylenol) 650 mg Q6H PRN ORAL Mild Pain/Temp > 100.5 02/10/18 18:45 03/12/18 18:44 02/10/18 19:00 Chlorhexidine Gluconate (Trinh-Hex 2%) 1 applic DAILY TOPIC 02/11/18 09:00 03/12/18 08:59 02/11/18 08:10 Dextrose/Sodium Chloride 1,000 ml @ 75 mls/hr [id number] IV 02/10/18 10:45 03/12/18 01:44 02/11/18 00:25 Metronidazole 100 ml @ 100 mls/hr Q8HR IVPB 02/10/18 14:00 02/17/18 13:59 02/11/18 06:13 Vancomycin HCl (Vancomycin) 125 mg FOUR TIMES A DAY ORAL 02/10/18 13:00 02/17/18 12:59 02/11/18 08:09 GI: Plan Problems: (1) C. difficile colitis (2) dehydration,hypotension (3) Enteritis Plan CT AP reviewed >> Diffusely fluid-filled colon with equivocal slight wall thickening, suspect colitis. Fluid is also consistent with stated clinical history of diarrhea. Fluid-filled small bowel loops may also indicate a component of enteritis No other acute abnormality Cdiff positive AST elevation >> hold tylenol use Advance to regular diet flagyl IV >> transition to PO electrolyte replacement H2B pain mgmt fu labs Discussed with Dr. Dotson. Thank you for this patient referral, we will follow. Lori Nazario N.P. Feb 11, 2018 09:57
[2018-02-11] MEDS ORDERED: NS 275ml ONE (10:23)
[2018-02-11] MEDS ORDERED: VANCOMYCIN250 MG/5 M ORAL (11:44)
[2018-02-11] MEDS ORDERED: METRONIDAZOLE500 MG ORAL (11:44)
[2018-02-11 12:08] VITALS: BP 102/63
--- NOTE | 2018-02-11 12:53 | Infectious Diseases Prog Note ---
Assessment/Plan Problems: (1) C. difficile colitis Assessment & Plan: complicated with sepsis, continue oral vancomycin and flagyl iv, keep in contact isolation, avoid PPI and Imodium (2) Sepsis Assessment & Plan: due to the above, improving , due to C diff colitis , continue oral vancomycin and iv flagyl , continue hydration (3) HIV (human immunodeficiency virus infection) Assessment & Plan: with CD4 counts of 336 , await Viral load, recommend to follow up with his HIV provider as an outpatient (4) dehydration,hypotension Assessment & Plan: due to the above, continue IVF for hydration (5) Open wound of penis Assessment & Plan: will screen him for gonorrhea, chlamydia and syphilis with [facility]PR . will send wound culture. will give one dose of benzathine penicillin 2.4 mu im x 1 Subjective Constitutional: Reports: no symptoms HEENT: Reports: no symptoms Respiratory: Reports: no symptoms Breasts: Reports: no symptoms Cardiovascular: Reports: no symptoms Gastrointestinal/Abdominal: Reports: diarrhea Genitourinary: Reports: no symptoms Neurologic: Reports: no symptoms Psychiatric: Reports: no symptoms Skin: Reports: ulcer Endocrine: Reports: no symptoms Hematologic: Reports: no symptoms Musculoskeletal: Reports: no symptoms Allergies: Coded Allergies: No Known Allergies (Unverified , 02/09/18) Objective Vital Signs Last 24 Hour Vital Signs Date Time Temp Pulse Resp B/P (MAP) Pulse Ox O2 Delivery O2 Flow Rate FiO2 02/11/18 12:08 96.0 82 17 102/63 96 Room Air 96.0 02/11/18 08:00 89 02/11/18 08:00 98.1 84 20 102/67 94 Room Air 98.1 02/11/18 04:00 89 02/11/18 04:00 98.2 81 20 105/62 96 Room Air 98.2 02/11/18 00:00 97.9 97 20 100/51 97 Room Air 97.9 02/11/18 00:00 90 02/10/18 20:01 98.4 02/10/18 20:00 98.4 95 20 109/74 97 Room Air 98.4 02/10/18 20:00 98 02/10/18 19:00 100.9 02/10/18 16:00 100.2 93 18 100/65 100 Room Air 100.2 02/10/18 16:00 104 Height (Feet): 5 Height (Inches): 11.00 Weight (Pounds): 172 General Appearance: WD/WN, no acute distress HEENT: normocephalic, atraumatic, anicteric, mucous membranes moist, PERRL Respiratory/Chest: chest wall non-tender, lungs clear, normal breath sounds, no respiratory distress, no accessory muscle use Cardiovascular: normal peripheral pulses, normal rate, regular rhythm, no gallop/murmur, no JVD Abdomen: soft, non tender, no organomegaly, non distended, no mass, no scars, hyperactive bowel sounds Extremities: no cyanosis, no clubbing Skin: no rash, no lesions, no ulcers Neurologic/Psychiatric: alert, oriented x 3, responsive Microbiology Date/Time Source Procedure Growth Status 02/09/18 20:15 Blood Blood Culture - Preliminary NO GROWTH AFTER 24 HOURS Resulted 02/09/18 20:10 Blood Blood Culture - Preliminary NO GROWTH AFTER 24 HOURS Resulted 02/09/18 20:15 Nasal Nares Influenza Types A,B Antigen (LILLI) - Final Complete 02/10/18 04:14 Stool Clostridium difficile Toxin Assay - Final Complete Laboratory Tests Test 02/10/18 14:13 02/11/18 02:30 White Blood Count 6.4 x10E3/uL (3.4-10.8) 8.4 K/UL (4.8-10.8) Lymphocytes 30 % (Not Estab.) Nucleated Red Blood Cells (.) Absolute Lymphocytes (Cell Immunity 1.9 x10E3/uL (0.7-3.1) Percent CD3 Cells 72.5 % (57.5-86.2) Absolute CD3 Count 1378 /uL (622-2402) Percent CD4 Cells 17.6 % (30.8-58.5) L Absolute CD4 Count 334 /uL (359-1519) L T-Lymphocyte CD4/CD8 Ratio 0.33 (0.92-3.72) L Percent CD8 Cells 53.2 % (12.0-35.5) H Absolute CD8 Count 1011 /uL (109-897) H Rapid Plasma Reagin Pending HIV-1 RNA (PCR) log10 Value Pending HIV-1 RNA Ultraquantitative (PCR) Pending Red Blood Count 5.38 M/UL (4.70-6.10) Hemoglobin 12.8 G/DL (14.2-18.0) L Hematocrit 37.9 % (42.0-52.0) L Mean Corpuscular Volume 70 FL (80-99) L Mean Corpuscular Hemoglobin 23.8 PG (27.0-31.0) L Mean Corpuscular Hemoglobin Concent 33.8 G/DL (32.0-36.0) Red Cell Distribution Width 13.3 % (11.6-14.8) Platelet Count 150 K/UL (150-450) Mean Platelet Volume 9.0 FL (6.5-10.1) Neutrophils (%) (Auto) 53.8 % (45.0-75.0) Lymphocytes (%) (Auto) 36.5 % (20.0-45.0) Monocytes (%) (Auto) 7.1 % (1.0-10.0) Eosinophils (%) (Auto) 1.1 % (0.0-3.0) Basophils (%) (Auto) 1.5 % (0.0-2.0) Sodium Level 137 MMOL/L (136-145) Potassium Level 2.8 MMOL/L (3.5-5.1) L Chloride Level 106 MMOL/L (98-107) Carbon Dioxide Level 26 MMOL/L (21-32) Anion Gap 5 mmol/L (5-15) Blood Urea Nitrogen 13 mg/dL (7-18) Creatinine 1.1 MG/DL (0.55-1.30) Estimat Glomerular Filtration Rate > 60 mL/min (>60) Glucose Level 104 MG/DL (74-106) Calcium Level 7.7 MG/DL (8.5-10.1) L Vancomycin Level Trough 2.5 ug/mL (5.0-12.0) L Current Medications Medications (Trade) Dose Ordered Sig/Carmelo Route PRN Reason Start Time Stop Time Status Last Admin Dose Admin Acetaminophen (Tylenol) 650 mg Q6H PRN ORAL Mild Pain/Temp > 100.5 02/10/18 18:45 03/12/18 18:44 02/10/18 19:00 Chlorhexidine Gluconate (Trinh-Hex 2%) 1 applic DAILY TOPIC 02/11/18 09:00 03/12/18 08:59 02/11/18 08:10 Famotidine (Pepcid) 20 mg DAILY ORAL 02/12/18 09:00 03/14/18 08:59 Metronidazole 100 ml @ 100 mls/hr Q8HR IVPB 02/10/18 14:00 02/17/18 13:59 02/11/18 06:13 Vancomycin HCl (Vancomycin) 125 mg FOUR TIMES A DAY ORAL 02/10/18 13:00 02/17/18 12:59 02/11/18 08:09 Kaylynn Bernstein M.D. Feb 11, 2018 12:53
[2018-02-11] MEDS ORDERED: Bicillin LA 2,400,000 units IM ONE (14:00)
[2018-02-11] MEDS ORDERED: D5NS 1000ml IV ONE (15:59)
--- NOTE | 2018-02-11 21:25 | Cardiology Report ---
APPROVED REPORT EKG Measurement Heart [id number] Sinus tachycardia Otherwise normal ECG
--- NOTE | 2018-02-13 17:42 | Discharge Summary ---
Discharge Summary Discharge Summary Discharge Summary DATE OF ADMISSION: 02/09/2018 DATE OF DISCHARGE: 02/11/2018 CONSULTANTS: Dr. Atul Bernstein BRIEF HOSPITAL COURSE: Patient is a 28-year-old apparently homeless male who is HIV positive. He had been having diarrhea for the past 4 days. He came to the hospital complaining of nausea and profuse diarrhea. On evaluation at ED, blood work showed WBC 11.8 , lactic acid 2.9, potassium 3.1. He was initially normotensive however blood pressure dropped to 80 systolic, he was also tachycardic. A central line to the right jugular was placed. He was febrile temperature of 102. He was given IV hydration and was admitted to ICU. He did not require pressors. Stool CDT was positive he was seen by infectious disease specialist and was given vancomycin and Flagyl. CD4 count was 336, viral load pending, he cannot recall his HIV medications, he was recommended to follow-up with his HIV provider. He was screened for STDs, he was given 1 dose of benzathine penicillin 1. Blood culture did not isolate any growth. Influenza screen was negative. He had a CT scan of the abdomen that showed diffusely fluid-filled colon with equivocal wall thickening, suspect colitis. His diet was eventually advanced. No proton pump inhibitors were given due to diarrhea. Antibiotics were transitioned to by mouth. He was seen by social service to aid with discharge planning. He was eventually cleared for discharge home. FINAL DIAGNOSES: Acute colitis Hyperglycemia Elevated lactic acid Sepsis Diarrhea HIV positive Bipolar/manic depressive psychosis Wound on penis present on admission DISPOSITION: Patient was discharged home to a jail DISCHARGE MEDICATIONS: Refer to Discharge Medication List. DISCHARGE INSTRUCTIONS: Follow up with PCP in a week. I have been assigned to dictate discharge summary on this account, and I was not involved in the patient's management. Jane Hayes NP Feb 13, 2018 17:42
== END 2018-02-11 16:00 | disposition home or self-care (01) | DRG 892 ==
LOC: EDBD 19:50 → EMR 20:12 → EDBEDREQ 22:40 → EDBEDREQSVC 22:50 → EDBEDREQ 22:50 → ICU 22:55 → EDBEDREQ 23:21 → 2E 02-10 10:40
PROC: 05HM33Z Insertion of Infusion Device into Right Internal Jugular Vein, Percutaneous Approach (ICD-10-PCS; principal; 2018-02-09)
DX: A41.9 Sepsis, unspecified organism (principal); B20 Human immunodeficiency virus [HIV] disease; A04.72 Enterocolitis due to Clostridium difficile, not specified as recurrent; E86.0 Dehydration; S31.20XA Unspecified open wound of penis, initial encounter; X58.XXXA Exposure to other specified factors, initial encounter; Z59.0 Homelessness; F31.9 Bipolar disorder, unspecified; R73.9 Hyperglycemia, unspecified
CPT/HCPCS: 36415; 71045; 74176; 80048; 80053; 80202; 81003; 82550; 82553; 82962; 83605; 83735; 84100; 84484; 85025; 86360; 86592; 86710; 87040; 87070; 87081; 87181; 87205; 87324; 87536; 93005; 99285; J8499

== ENCOUNTER 2018-12-17 19:38 | Emergency (ER) | payer OTHER ==
[~2018-12-17] VITALS: Ht 177.8 cm; Wt 81.6 kg
[~2018-12-17 19:38] MED LIST changes: +METRONIDAZOLE500 MG ORAL; +VANCOMYCIN250 MG/5 M ORAL
[2018-12-17 19:44] VITALS: BP 133/90
--- NOTE | 2018-12-17 20:00 | NUR ---
ED Nurse Note: pt was brought in ra 68, pt is under [employer] custody, 5 mg versed was given in the field. [employer] stated pt was found "trashing" around the [place] [address] in which law enforcment was contacted. pt vital are steady as per triage. pt is asleep but is easily arousable. [employer] at pt bed side.
--- NOTE | 2018-12-17 20:31 | NUR ---
HAND-OFF: Report given to MICHAEL HURTADO.
--- NOTE | 2018-12-17 20:32 | NUR ---
ED Nurse Note: Pt was moved from Hallway to room 7#. Received report from Reji/ RN. Pt is A/O X 4. VSS. [employer] still at bed side, will continue to Monitor. Pt is on 51:50 according to MARISSA.
[2018-12-17 21:00] LABS: ANION GAP 7 mmol/L (5-15); BLOOD UREA NITROGEN 11 mg/dL (7-18); CALCIUM 8.5 MG/DL (8.5-10.1); CARBON DIOXIDE 27 MMOL/L (21-32); CHLORIDE 105 MMOL/L (98-107); CREATININE 0.8 MG/DL (0.55-1.30); POTASSIUM 3.4 MMOL/L (3.5-5.1); SODIUM 139 MMOL/L (136-145)
[2018-12-17 21:04] LABS: BASOPHILS % (AUTO) 2.5 % (0.0-2.0); EOSINOPHILS % (AUTO) 1.1 % (0.0-3.0); HEMOGLOBIN 12.7 G/DL (14.2-18.0); LYMPHOCYTES % (AUTO) 41.1 % (20.0-45.0); MEAN CORPUSCULAR VOLUME 69 FL (80-99); MONOCYTES % (AUTO) 11.8 % (1.0-10.0); NEUTROPHILS % (AUTO) 43.5 % (45.0-75.0); PLATELET COUNT 228 K/UL (150-450); RED BLOOD COUNT 5.92 M/UL (4.70-6.10); RED CELL DISTRIBUTION WIDTH 12.7 % (11.6-14.8); WHITE BLOOD COUNT 3.6 K/UL (4.8-10.8)
[2018-12-17 21:05] LABS: ALANINE AMINOTRANSFERASE 36 U/L (12-78); ALBUMIN/GLOBULIN RATIO 0.6 (1.0-2.7); ALKALINE PHOSPHATASE 109 U/L (46-116); ASPARTATE AMINO TRANSFERASE 27 U/L (15-37); BILIRUBIN,TOTAL 0.3 MG/DL (0.2-1.0)
[2018-12-17] MEDS ORDERED: Haloperidol 5mg/ml Inj IM ONE (21:15)
[2018-12-17] MEDS ORDERED: DiphenhydrAMINE 50mg/ml Inj IM ONE (21:15)
--- NOTE | 2018-12-17 21:15 | NUR ---
ED Nurse Note: haldol and benadryl withheld at this time, pt sleeping, ERMD notified and verified the order, hold meds at this time.
--- NOTE | 2018-12-17 22:00 | Emergency Room Report ---
History of Present Illness General Chief Complaint: Medical Clearance Source: EMS, Law Enforcement Present Illness HPI Patient is a 28-year-old male who presented after increased agitation. Patient was noted to be markedly agitated in a store and was being combative with patrons. Patient had been given Versed prior to arrival at the hospital. History is markedly limited by patient's subsequent sedation. Allergies: Coded Allergies: No Known Allergies (Unverified , 02/09/18) UNABLE TO ASSESS (Unverified , 12/17/18) Patient History Past Medical History: see triage record Reviewed Nursing Documentation: PMH: Agreed; PSxH: Agreed Nursing Documentation-PMH Past Medical History: Deferred Review of Systems All Other Systems: limited - by mental status Physical Exam Vital Signs Date Time Temp Pulse Resp B/P (MAP) Pulse Ox O2 Delivery O2 Flow Rate FiO2 12/17/18 19:31 97.0 106 18 133/90 97 Room Air 12/17/18 19:44 98 Sp02 EP Interpretation: reviewed, normal General Appearance: no apparent distress, non-toxic Head: atraumatic Eyes: PERRL, lids + conjunctiva normal ENT: hearing intact, no angioedema, other - upper lip abrasion Neck: supple/symm/no masses, no meningismus, full range of motion without pain Respiratory: effort normal, no wheezing, chest symmetrical Cardiovascular: regular rate, rhythm, no edema Cardiovascular #2: 2+ carotid (R), 2+ carotid (L), 2+ dorsalis pedis (R), 2+ dorsalis pedis (L) Gastrointestinal: non-tender, no mass, non-distended, no rebound/guarding, normal bowel sounds Musculoskeletal: strength & tone normal, normal ROM, non-tender Neurologic: motor strength/tone normal Psychiatric: other - somnolent Skin: no rash, well hydrated Lymphatic: normal inspection Medical Decision Making Diagnostic Impression: Primary Impression: Agitation Additional Impression: Substance abuse ER Course Patient is a 28-year-old male who presented after increased agitation. Differential diagnosis include was not limited to psychosis, substance abuse, alcohol intoxication, among others. Because of complexity of patient's case laboratory testing and imaging studies were ordered. CT the head read by radiology showed no evidence of acute intracranial hemorrhage. This was ordered due to patient's altered mental status. Laboratory testing was notable for urine drug screen positive for amphetamine. Patient was medically cleared for psychiatric referral. He was given further medications for agitation.Patient was noted to have been placed on a 5150 hold by [employer]. Patient was noted to have a lip abrasion which does not appear to require suturing. Labs Test 12/17/18 20:30 White Blood Count 3.6 K/UL (4.8-10.8) Red Blood Count 5.92 M/UL (4.70-6.10) Hemoglobin 12.7 G/DL (14.2-18.0) Hematocrit 41.0 % (42.0-52.0) Mean Corpuscular Volume 69 FL (80-99) Mean Corpuscular Hemoglobin 21.5 PG (27.0-31.0) Mean Corpuscular Hemoglobin Concent 31.0 G/DL (32.0-36.0) Red Cell Distribution Width 12.7 % (11.6-14.8) Platelet Count 228 K/UL (150-450) Mean Platelet Volume 7.6 FL (6.5-10.1) Neutrophils (%) (Auto) 43.5 % (45.0-75.0) Lymphocytes (%) (Auto) 41.1 % (20.0-45.0) Monocytes (%) (Auto) 11.8 % (1.0-10.0) Eosinophils (%) (Auto) 1.1 % (0.0-3.0) Basophils (%) (Auto) 2.5 % (0.0-2.0) Sodium Level 139 MMOL/L (136-145) Potassium Level 3.4 MMOL/L (3.5-5.1) Chloride Level 105 MMOL/L (98-107) Carbon Dioxide Level 27 MMOL/L (21-32) Anion Gap 7 mmol/L (5-15) Blood Urea Nitrogen 11 mg/dL (7-18) Creatinine 0.8 MG/DL (0.55-1.30) Estimat Glomerular Filtration Rate > 60 mL/min (>60) Glucose Level 90 MG/DL (74-106) Calcium Level 8.5 MG/DL (8.5-10.1) Total Bilirubin 0.3 MG/DL (0.2-1.0) Aspartate Amino Transf (AST/SGOT) 27 U/L (15-37) Alanine Aminotransferase (ALT/SGPT) 36 U/L (12-78) Alkaline Phosphatase 109 U/L (46-116) Total Protein 7.9 G/DL (6.4-8.2) Albumin 3.0 G/DL (3.4-5.0) Globulin 4.9 g/dL Albumin/Globulin Ratio 0.6 (1.0-2.7) Salicylates Level 1.4 ug/mL (2.8-20) Urine Opiates Screen Negative (NEGATIVE) Acetaminophen Level < 2 MCG/ML (10-30) Urine Barbiturates Screen Negative (NEGATIVE) Phencyclidine (PCP) Screen Negative (NEGATIVE) Urine Amphetamines Screen Positive (NEGATIVE) Urine Benzodiazepines Screen Positive (NEGATIVE) Urine Cocaine Screen Negative (NEGATIVE) Urine Marijuana (THC) Screen Negative (NEGATIVE) Serum Alcohol < 3 mg/dL Last Vital Signs Date Time Temp Pulse Resp B/P (MAP) Pulse Ox O2 Delivery O2 Flow Rate FiO2 12/17/18 19:44 98 18 Room Air 98 12/17/18 19:44 97.0 133/90 97 Status: improved Disposition: XFER TO PSYCH HOSP/UNIT Condition: Stable Referrals: NOT CHOSEN NICKI/,REFERRING (PCP) Butch Lara MD Dec 17, 2018 22:00
--- NOTE | 2018-12-18 04:21 | NUR ---
ED Nurse Note: Pt is A/O X 4, Provided [place] and drinks/ Juice and water. VSS. Pt is sleeping quitly in bed, will continue to monitor.
--- NOTE | 2018-12-18 06:30 | NUR ---
ED Nurse Note: Pt's belong at locker 2#.
--- NOTE | 2018-12-18 07:26 | NUR ---
HAND-OFF: Report given to Hakan/BRYANT. Pt is a/o x4. VSS. Need to varify the belong with Pt before D/C.
--- NOTE | 2018-12-18 07:27 | NUR ---
ED Nurse Note: REPORT RECEIVED FROM BRYANT RODRIGUEZ. PT SLEEPING PEACEFULLY IN BED IN NAD. AOX4. VSS.
[2018-12-18 07:28] VITALS: BP 142/80
--- NOTE | 2018-12-18 07:28 | NUR ---
CALLED NURSING SUP. NO SITTER AVAILABLE AT THIS TIME.
--- NOTE | 2018-12-18 09:10 | NUR ---
ED Nurse Note: Provided water and juice. Able to tolerate oral fluids without problem.
[2018-12-18 09:51] LABS: APPEARANCE,URINE SLIGHTLY CLOUDY; BILIRUBIN, URINE NEGATIVE (NEGATIVE); GLUCOSE, URINE (UA) NEGATIVE (NEGATIVE); KETONES,URINE NEGATIVE (NEGATIVE); LEUKOCYTE ESTERASE ,URINE NEGATIVE (NEGATIVE); NITRITE,URINE NEGATIVE (NEGATIVE); PH,URINE 8 (4.5-8.0); PROTEIN,URINE 1+ (NEGATIVE); UROBILINOGEN,URINE NORMAL MG/DL (0.0-1.0)
[2018-12-18 09:57] LABS: COLOR,URINE YELLOW
[2018-12-18 11:32] VITALS: BP 141/83
--- NOTE | 2018-12-18 11:55 | NUR ---
ED Nurse Note: Patient is being transferred to [facility] by [facility] ambulance. All his belongings given to ambulance personnel. Patient awake, alert, oriented x3. Denies any past medical hx or allergies. Denies SI and HI at this time. Patient is eating sandwiches.
--- NOTE | 2018-12-18 11:57 | NUR ---
ED Nurse Note: Report to given to BRYANT Balderas @ [facility].
[2018-12-18 12:05] VITALS: BP 141/83
== END 2018-12-18 12:13 ==
LOC: EDBD 19:38 → EMR 19:52 → EDBD 19:52 → EDUNIT# 19:52 → EMR 12-18 12:13
DX: R45.1 Restlessness and agitation (principal); F19.10 Other psychoactive substance abuse, uncomplicated
CPT/HCPCS: 36415; 70450; 80053; 80307; 80329; 81003; 85025; 99285